=== PATIENT | female | born 1955 | race Caucasian/White ===

== ENCOUNTER 2016-12-21 21:22 | Emergency (ER) | payer SELFPAY ==
--- NOTE | 2016-12-22 17:08 | ER ---
ADMIT: 12/21/2016 RM/LOC: ER [facility] MR#: [id number] [address] [id number] LUANNE CHESTER [address] [place] [address] Emergency Room Report SEX: F AGE: 60 : 1955 DATE: 12/21/2016 A 60-year-old who comes to the Emergency Department with complaints of rash and itching and a cough. She states this started suddenly this evening though she does say her cough has been present for the past 1 week. She has a nonproductive cough. See T-sheet for remainder of history and physical. Chest x-ray reveals questionable left lower lobe infiltrate. CBC is 14. Her potassium is 2.8, glucose of 163, BNP 127. The patient is diagnosed with: 1. Allergic reaction. 2. Bronchitis. 3. Hypokalemia. She was given a potassium supplement in the Emergency Department, prescription for Levaquin, a Medrol Dosepak, and potassium. Instructed to follow up this coming week with her doctor. Jones Edwards MD/ katey JOB #: [id number] CC: Gaudencio Lundberg MD, Attending Physician Kelvin Devi MD, Family Physician
== END 2016-12-21 23:05 | disposition home or self-care (01) ==
LOC: ER 21:22
DX: T78.40XA Allergy, unspecified, initial encounter (principal); E87.6 Hypokalemia; J40 Bronchitis, not specified as acute or chronic; I10 Essential (primary) hypertension; Z79.899 Other long term (current) drug therapy